=== PATIENT | male | born 1955 | race Caucasian/White ===

== ENCOUNTER 2019-12-22 13:51 | Emergency (ER) | payer OTHER ==
[~2019-12-22] VITALS: Ht 190.5 cm; Wt 104.3 kg
[2019-12-22 13:51] VITALS: BP_SYST 193
--- NOTE | 2019-12-22 13:51 | NUR ---
BROUGHT BACK TO BED #7 AND TRIAGED. REPORT GIVEN TO YADI
--- NOTE | 2019-12-22 13:52 | NUR ---
Pt brought by self, A&Ox4,ambulatory, pt presents to ER with nosebleed for one hour 1/2, skin pink and warm, cap refill <3.
[2019-12-22] MEDS ORDERED: TRANEXAMIC ACID 1,000 MG/10 ML VIAL IV ONE (14:00)
--- NOTE | 2019-12-22 14:00 | NUR ---
Dr Morel at bedside examining patient
[2019-12-22] MEDS ORDERED: cloNIDine HCL 0.1 MG TABLET PO ONE (14:30)
--- NOTE | 2019-12-22 14:33 | NUR ---
Pt anxious at this time, Dr Morel at bedside reassuring patient
--- NOTE | 2019-12-22 14:40 | NUR ---
Pt ambulated to restroom, A&Ox4, respirations even and unlabored, pt states bleeding improving at this time.
[2019-12-22] MEDS ORDERED: SILVER NITRATE APPLICATOR 1 STICK STICK..EA. TP ONE (15:15)
--- NOTE | 2019-12-22 15:21 | NUR ---
Dr Morel at bedside for silver Nitrate procedure.
[2019-12-22 15:34] VITALS: BP_SYST 170
--- NOTE | 2019-12-22 15:35 | NUR ---
Patient given written and verbal discharge instructions and verbalizes understanding. ER MD discussed with patient the results and treatment provided. Patient in stable condition. ID arm band removed. No Rx given. Patient educated on pain management and to follow up with PMD. Pain Scale 2/10 tolerable for patient. Opportunity for questions provided and answered. Medication side effect fact sheet provided.
== END 2019-12-22 15:34 | disposition home or self-care (01) ==
LOC: SED 13:51
DX: R04.0 Epistaxis (principal)
CPT/HCPCS: 99284

== ENCOUNTER 2020-11-15 10:01 | Outpatient (CLI) | payer OTHER | END 2020-11-15 20:36 | disposition home or self-care (01) | LOC: SUS 10:01 | DX: N28.1 Cyst of kidney, acquired (principal); K76.0 Fatty (change of) liver, not elsewhere classified; R16.1 Splenomegaly, not elsewhere classified; R10.9 Unspecified abdominal pain | CPT/HCPCS: 76700-TC ==

== ENCOUNTER 2023-02-08 06:23 | Emergency (ER) | payer OTHER ==
[~2023-02-08] VITALS: Ht 190.5 cm; Wt 113.4 kg
[2023-02-08] MEDS ORDERED: ONDANSETRON 4 MG ODT TAB PO ONE (06:45)
[2023-02-08] MEDS ORDERED: KETOROLAC TROMETHAMINE 60 MG/2 ML VIAL IM ONE (06:45)
[2023-02-08 06:49] VITALS: BP_SYST 147; PULSE 80; RESP 20; TEMP 97; O2SAT 97
[2023-02-08 07:12] LABS: BASOPHILS # (AUTO) 0.1 K/uL (0.0-0.2); EOSINOPHILS # (AUTO) 0.3 K/uL (0.0-0.4); EOSINOPHILS % (AUTO) 3.4 % (0.0-4.0); HEMATOCRIT 47.2 % (36-54); HEMOGLOBIN 15.7 g/dL (14.0-18.0); LYMPHOCYTES # (AUTO) 2.4 K/uL (1.0-5.5); LYMPHOCYTES % (AUTO) 28.9 % (20.5-51.5); MEAN CORPUSCULAR HEMOGLOBIN 32 pg (27-31); MEAN CORPUSCULAR HGB CONC 33 % (32-36); MEAN CORPUSCULAR VOLUME 98 fL (79.0-98.0); MONOCYTES # (AUTO) 0.7 K/uL (0.0-1.0); MONOCYTES % (AUTO) 8.1 % (1.7-9.3); NEUTROPHILS # (AUTO) 4.9 K/uL (1.8-7.7); NEUTROPHILS % (AUTO) 58.6 % (40.0-70.0); PLATELET COUNT (AUTO) 191 K/uL (130-430); RED BLOOD CELL COUNT(AUTO) 4.84 MIL/uL (4.2-6.2); RED CELL DISTRIBUTION WIDTH 13.1 % (9.0-15.0); WHITE BLOOD COUNT (AUTO) 8.4 K/uL (4.8-10.8)
[2023-02-08 07:25] LABS: ANION GAP 9 (5-15); CALCIUM 9.1 mg/dL (8.4-11.0); CHLORIDE 103 mmol/L (98-107); CREATININE 1.06 mg/dL (0.55-1.30); GFR AFRICAN AMERICAN 90 mL/min (>90); GLUCOSE 165 mg/dL (74-106); UREA NITROGEN, BLOOD 20 mg/dL (8-21)
[2023-02-08 07:27] LABS: INR 1.1 (0.80-1.20); PROTHROMBIN TIME 11.5 SECS (9.5-12.5)
[2023-02-08 07:30] LABS: ALANINE AMINOTRANSFERASE 52 U/L (12-78); ALBUMIN 3.8 g/dL (3.4-4.8); AMYLASE 93 U/L (0-100); ASPARTATE AMINOTRANSFERASE 35 U/L (10-37); LIPASE 228 U/L (73-393); TOTAL BILIRUBIN 0.9 mg/dL (0.0-1.0)
[2023-02-08 08:34] LABS: ACETONE, SERUM NEGATIVE (NEGATIVE)
[2023-02-08] MEDS ORDERED: TRAM50TA2 PO (09:07)
[2023-02-08] MEDS ORDERED: IBUP-1971 PO (09:07)
[2023-02-08 09:16] LABS: BILIRUBIN,URINE NEGATIVE (NEGATIVE); BLOOD, URINE NEGATIVE (NEGATIVE); CLARITY/URINE CLEAR (CLEAR); COLOR,URINE YELLOW (YELLOW); GLUCOSE,URINE NEGATIVE (NEGATIVE); KETONES,URINE NEGATIVE (NEGATIVE); LEUKOCYTE ESTERASE ,URINE NEGATIVE (NEGATIVE); NITRITE, URINE NEGATIVE (NEGATIVE); PROTEIN URINE NEGATIVE (NEGATIVE); UROBILINOGEN,URINE 0.2 (0.2-1.0)
[2023-02-08 09:23] VITALS: BP_SYST 126; PULSE 78; RESP 18; TEMP 97.6; O2SAT 97
== END 2023-02-08 09:24 | disposition home or self-care (01) ==
LOC: SED 06:23
DX: R10.9 Unspecified abdominal pain (principal); R11.10 Vomiting, unspecified; R68.2 Dry mouth, unspecified; E11.9 Type 2 diabetes mellitus without complications; Z79.899 Other long term (current) drug therapy
CPT/HCPCS: 99285; 74176; 80053; 82009; 82150; 83690; 85025; 85610; 85730; 36415; 76376; 96372; 83605; 81003; Q0162; J1885